=== PATIENT | male | born 1995 | race Caucasian/White ===

== ENCOUNTER 2019-03-09 15:24 | Emergency (ER) | payer OTHER ==
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
== END 2019-03-09 16:52 | disposition home or self-care (01) ==
LOC: ER 15:24
DX: S60.211A Contusion of right wrist, initial encounter (principal); V47.5XXA Car driver injured in collision with fixed or stationary object in traffic accident, initial encounter; Z88.0 Allergy status to penicillin

== ENCOUNTER 2023-12-06 17:35 | Emergency (ER) | payer OTHER ==
[2023-12-06] MEDS ORDERED: NA CHLORIDE 0.9% 1,000 ML ONE (18:20)
[2023-12-06] MEDS ORDERED: TDAP (DIPHTH,PERTUSS(ACELL),TET VAC) 0.5 ML VIAL IMVAC ONE (18:20)
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
--- NOTE | 2023-12-06 18:41 | RAD REPORT ---
EXAM DESCRIPTION: CT - CTFB CLINICAL HISTORY: FACIAL PAIN COMPARISON: No comparisons TECHNIQUE: Axial 2 mm thick images of the face were obtained with sagittal and coronal reconstructio n images. All CT scans are performed using dose optimization technique as appropriate and may include automated exposure control or mA/KV adjustment according to patient size. FINDINGS: No acute facial bone fracture is seen.The mandible is intact. The globes and orbital contents are grossly unremarkable.Trace left maxillary sinus thickening. Sever al of the ethmoid air cells are partially opacified. Preseptal soft tissue swelling and hematoma at the left orbit and forehead. There is a laceration as well. No radiopaque foreign body. IMPRESSION: Negative for facial bone fracture.
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
--- NOTE | 2023-12-06 20:59 | RAD REPORT ---
EXAM DESCRIPTION: RAD - Tib Fib Left - 12/06/2023 8:49 pm CLINICAL HISTORY: PAIN COMPARISON: No comparisons FINDINGS/IMPRESSION: No acute fracture. No malalignment. No significant focal degenerative changes.
[2023-12-06 22:23] VITALS: BP 132/74; TEMP 98.5; O2SAT 98
== END 2023-12-06 21:01 | disposition home or self-care (01) ==
LOC: ER 17:35
DX: S00.12XA Contusion of left eyelid and periocular area, initial encounter (principal); S80.12XA Contusion of left lower leg, initial encounter; S09.90XA Unspecified injury of head, initial encounter; Z88.0 Allergy status to penicillin
CPT/HCPCS: 70450; 72125; 70486; 76377; 73590; 96372; 99285; J7030